=== PATIENT | female | born 1950 | race Caucasian/White ===

== ENCOUNTER 2021-12-02 16:56 | Emergency (ER) | payer MEDICARE, OTHER ==
[~2021-12-02 16:56] MED LIST: CELEXA20 MG PO; DIAZEPAM 5MG TAB5 MG PO; FEMARA2.5 MG PO; TYLENOL #31 EACH PO
[2021-12-02] MEDS ORDERED: NORCO 5-325 TA1 EACH PO ×2 (20:15→21:57)
[2021-12-02] MEDS ORDERED: VIBRAMYCIN100 MG PO ×2 (20:15→21:57)
== END 2021-12-02 20:35 | disposition home or self-care (01) ==
LOC: FER 16:56
DX: S01.81XA Laceration without foreign body of other part of head, initial encounter (principal); S80.212A Abrasion, left knee, initial encounter; S80.211A Abrasion, right knee, initial encounter; Z23 Encounter for immunization; Z88.0 Allergy status to penicillin; W01.0XXA Fall on same level from slipping, tripping and stumbling without subsequent striking against object, initial encounter; Y92.009 Unspecified place in unspecified non-institutional (private) residence as the place of occurrence of the external cause
CPT/HCPCS: 70450; 72125; 90715